=== PATIENT | female | born 1990 | race African-American/Black ===

== ENCOUNTER 2016-07-12 15:15 | Emergency (ER) | payer SELFPAY ==
[2016-07-12 15:35] VITALS: BMI 27.8
[2016-07-12] MEDS ORDERED: ONDANSETRON 4 MG/2 ML VIAL IVPB ONE (15:45)
[2016-07-12] MEDS ORDERED: ALBUTEROL SO4 0.083% IH SOL 2.5 MG/3 ML VIAL.NEB. NEB ONE ×2 (15:45→15:50)
[2016-07-12] MEDS ORDERED: SODIUM CHLORIDE 1,000 ML IV STA (15:45)
[2016-07-12] MEDS ORDERED: KETOROLAC TROMETHAMINE 30 MG/1 ML VIAL IVPUSH ONE (15:45)
--- NOTE | 2016-07-12 15:49 | PDOC ---
History of Present Illness - General History Source: Patient Exam Limitations: No Limitations - History of Present Illness Initial Comments: 07/12/16 16:02 Patient is a 26 year old female with a significant past medical history of asthma and migraines who presents to the ED with complaint of asthma exacerbation, nausea and vomiting. Patient reports asthma exacerbation for 1 week with associated cough and chest tightness localized to the left side radiating to the left arm. Patient states that the left chest tightness is exacerbated by cough. Patient reports no relief with using her albuterol pump. Patient states that this morning she developed nausea and vomiting. Patient reports 1 episode of vomiting, nonbloody or nonbilious. Patient reports chills and feeling warm. No recent travel or sick contact. SH: 1/2 pack a day PSH: None Allergy: Penicillin <Nina Velez - Last Filed: 07/12/16 16:01> - General History Source: Patient Exam Limitations: No Limitations <Олег Gaspar - Last Filed: 07/12/16 17:48> - General Chief Complaint: Asthma Stated Complaint: ASTHMA Time Seen by Provider: 07/12/16 15:17 Past History <Nina Velez - Last Filed: 07/12/16 16:01> - Past Medical History Asthma: Yes - Psycho/Social/Smoking Cessation Hx Anxiety: No Suicidal Ideation: No Smoking History: Current every day smoker Number of Cigarettes Smoked Daily: 20 Information on smoking cessation initiated: Yes 'Breaking Loose' booklet given: 04/10/14 Hx Alcohol Use: Yes Drug/Substance Use Hx: No <Олег Gaspar - Last Filed: 07/12/16 17:48> - Past Medical History Allergies/Adverse Reactions: Allergies Allergy/AdvReac Type Severity Reaction Status Date / Time Penicillins Allergy Unknown Verified 07/12/16 15:17 Home Medications: Ambulatory Orders Albuterol 0.083% Nebulizer Clarissa [Ventolin 0.083% Nebulizer Soln -] 1 neb NEB Q6H #1 box 04/10/14 Albuterol 0.083% Nebulizer Clarissa [Ventolin 0.083% Nebulizer Soln -] 1 neb NEB Q6H PRN #20 vial 07/12/16 Naproxen [Naprosyn -] 500 mg PO BID PRN #14 tablet 07/12/16 Ondansetron HCl [Zofran] 4 mg PO Q6H PRN #15 tablet 07/12/16 Ranitidine HCl [Zantac] 150 mg PO BID PRN #14 tablet 07/12/16 Review of Systems - Review of Systems Able to Perform ROS?: Yes Comments:: 07/12/16 16:02 GENERAL/CONSTITUTIONAL: (+) chills. No fever. No weakness. HEAD, EYES, EARS, NOSE AND THROAT: No change in vision. No ear pain or discharge. No sore throat. CARDIOVASCULAR: (+) chest tightness. No chest pain or shortness of breath. RESPIRATORY: (+)cough. No wheezing, or hemoptysis. GASTROINTESTINAL: (+)nausea, (+) vomiting. No diarrhea or constipation. GENITOURINARY: No dysuria, frequency, or change in urination. MUSCULOSKELETAL: No joint or muscle swelling or pain. No neck or back pain. SKIN: No rash NEUROLOGIC: No headache, vertigo, loss of consciousness, or change in strength/ sensation. ENDOCRINE: No increased thirst. No abnormal weight change. HEMATOLOGIC/LYMPHATIC: No anemia, easy bleeding, or history of blood clots. ALLERGIC/IMMUNOLOGIC: No hives or skin allergy. <Nina Velez - Last Filed: 07/12/16 16:01> *Physical Exam - Vital Signs Last Vital Signs Temp Pulse Resp BP Pulse Ox 98.4 F 122 H 18 139/88 98 07/12/16 15:16 07/12/16 15:16 07/12/16 15:16 07/12/16 15:16 07/12/16 15:16 - Physical Exam Comments: 07/12/16 16:04 GENERAL: Awake, alert, and fully oriented, in no acute distress HEAD: No signs of trauma EYES: PERRLA, EOMI, sclera anicteric, conjunctiva clear ENT: Auricles normal inspection, hearing grossly normal, nares patent, oropharynx clear without exudates. Moist mucosa NECK: Normal ROM, supple, no lymphadenopathy, JVD, or masses LUNGS: Breath sounds equal, clear to auscultation bilaterally. No wheezes, and no crackles HEART: Regular rate and rhythm, normal S1 and S2, no murmurs, rubs or gallops CHEST: (+)Left chest and chest wall tenderness ABDOMEN: Soft, nontender, normoactive bowel sounds. No guarding, no rebound. No masses EXTREMITIES: Normal range of motion, no edema. No clubbing or cyanosis. No cords, erythema, or tenderness NEUROLOGICAL: Cranial nerves II through XII grossly intact. Normal speech, normal gait SKIN: Warm, Dry, normal turgor, no rashes or lesions noted. <Nina Velez - Last Filed: 07/12/16 16:01> - Vital Signs Last Vital Signs Temp Pulse Resp BP Pulse Ox 98.4 F 122 H 18 139/88 98 07/12/16 15:16 07/12/16 15:16 07/12/16 15:16 07/12/16 15:16 07/12/16 15:16 <Олег Gaspar - Last Filed: 07/12/16 17:48> Heart Score/ECG Review #1 ECG reviewed & interpreted by me at: 16:45 07/12/16 17:25 NSR 74, no std/anil, normal axis, normal intervals, QTC 446 msec <Олег Gaspar - Last Filed: 07/12/16 17:48> ED Treatment Course - LABORATORY CBC & Chemistry Diagram: 07/12/16 16:05 07/12/16 16:05 <Олег Gaspar - Last Filed: 07/12/16 17:48> Medical Decision Making - Medical Decision Making 07/12/16 15:47 A portion of this note was documented by scribe services under my direction. I have reviewed the details of the note, within reason, and agree with the documentation with the following case summary and management plan written by me. Patient treated in the ED. Nursing notes are reviewed and incorporated into the medical decision-making. Vital signs reviewed. Peripheral IV access obtained by the nurse, laboratory studies are drawn and sent, reviewed and interpreted by myself. Vital Signs Temp Pulse Resp BP Pulse Ox 98.4 F 122 H 18 139/88 98 07/12/16 15:16 07/12/16 15:16 07/12/16 15:16 07/12/16 15:16 07/12/16 15:16 26-year-old female with past medical history migraines, asthma presents with asthma, left-sided chest pain, headache, nausea, vomiting, abdominal cramping. Patient reported that she started developing some left upper chest pain around the insertion site of her pectoralis major that was reproducible palpation and movement. Denies any traumas or physical exertion. Noted today that she developed general malaise, wheezing, headaches and body aches. Denies sick contacts. I suspect that the patient is likely having a viral syndrome. The chest pain is reproducible likely muscle skeletal. Patient has no family history of cardiac disease in the 20s or 30s. We will obtain some lab work treat symptoms and reassess. 07/12/16 17:44 CBC, BMP 07/12/16 16:05 07/12/16 16:05 CMP Sodium 136 mmol/L (136-145) 07/12/16 16:05 Potassium 4.0 mmol/L (3.5-5.1) 07/12/16 16:05 Chloride 104 mmol/L (98-107) 07/12/16 16:05 Carbon Dioxide 23 mmol/L (22-28) 07/12/16 16:05 Anion Gap 9 (8-16) 07/12/16 16:05 BUN 11 mg/dl (7-18) 07/12/16 16:05 Creatinine 0.7 mg/dl (0.6-1.3) 07/12/16 16:05 Creat Clearance w eGFR > 60 (>60) 07/12/16 16:05 Random Glucose 87 mg/dl (74-106) 07/12/16 16:05 Calcium 9.9 mg/dl (8.4-10.2) 07/12/16 16:05 Total Bilirubin 0.1 mg/dl (0.2-1.0) L 07/12/16 16:05 AST 19 U/L (10-42) 07/12/16 16:05 ALT 14 U/L (10-40) 07/12/16 16:05 Alkaline Phosphatase 47 U/L (32-92) 07/12/16 16:05 Creatine Kinase 71 IU/L (26-140) 07/12/16 16:05 Troponin I < 0.03 ng/ml (0.03-0.50) L 07/12/16 16:05 Total Protein 8.4 g/dl (6.4-8.3) H 07/12/16 16:05 Albumin 4.8 g/dl (3.5-5.0) 07/12/16 16:05 Urine Test Results Urine Color Yellow 07/12/16 15:55 Urine Appearance Clear 07/12/16 15:55 Urine pH 6.0 (4.5-8) 07/12/16 15:55 Ur Specific [place] 1.020 (1.005-1.025) 07/12/16 15:55 Urine Protein Negative (NEGATIVE) 07/12/16 15:55 Urine Glucose (UA) Negative (NEGATIVE) 07/12/16 15:55 Urine Ketones 2+ (NEGATIVE) H 07/12/16 15:55 Urine Blood 1+ (NEGATIVE) H 07/12/16 15:55 Urine Nitrite Negative (NEGATIVE) 07/12/16 15:55 Urine Bilirubin Negative (NEGATIVE) 07/12/16 15:55 Ur Leukocyte Esterase Trace (NEGATIVE) 07/12/16 15:55 Patient reports no significant better after the medications. Again, I suspect this is viral syndrome. Patient will call back for HIV results. Supportive care and follow-up with primary care physician. I discussed the physical exam findings, ancillary test results and final diagnoses with the patient. I answered all of the patient's questions. The patient was satisfied with the care received and felt comfortable with the discharge plan and treatment plan. The patient will call their primary care physician within 24 hours to arrange follow-up and will return to the Emergency Department with any new, persistant or worsening symptoms. <Олег Gaspar - Last Filed: 07/12/16 17:48> *DC/Admit/Observation/Transfer - Attestations Scribe Attestion: 07/12/16 16:04 Documentation prepared by YANNA Chapa, acting as medical device for Олег Gaspar MD. <Nina Velez - Last Filed: 07/12/16 16:01> - Discharge Dispostion Admit: No <Олег Gaspar - Last Filed: 07/12/16 17:48> Diagnosis at time of Disposition: Viral syndrome - Discharge Dispostion Disposition: HOME Condition at time of disposition: Good - Prescriptions Prescriptions: Naproxen [Naprosyn -] 500 mg PO BID PRN #14 tablet PRN Reason: Pain/Fever Albuterol 0.083% Nebulizer Clarissa [Ventolin 0.083% Nebulizer Soln -] 1 neb NEB Q6H PRN #20 vial PRN Reason: Wheezing Ranitidine HCl [Zantac] 150 mg PO BID PRN #14 tablet PRN Reason: GERD Ondansetron HCl [Zofran] 4 mg PO Q6H PRN #15 tablet PRN Reason: Nausea - Patient Instructions Printed Discharge Instructions: Tips to Help You Stop Smoking, DI for Viral Syndrome Additional Instructions: You likely have a viral syndrome. Take the medications as prescribed. Drink plenty of fluids and rest. Follow up with your doctor. Call back [phone] for the additional results.
[2016-07-12] MEDS ORDERED: KETOROLAC TROMETHAMINE 30 MG/1 ML VIAL ONE (15:50)
[2016-07-12] MEDS ORDERED: ONDANSETRON 4 MG/2 ML VIAL ONE (15:51)
[2016-07-12 16:23] LABS: BASOPHIL 4.7 % (0-2.0); EOSINOPHIL 0.5 % (0-4.5); MCH 30.3 pg (25.7-33.7); MCHC 33.9 g/dl (32.0-36.0); MEAN CELL VOLUME 89.5 fl (80-96); MEAN PLT VOLUME 10.3 fl (7.5-11.1); NEUTROPHILS 62.9 % (42.8-82.8); PLATELET COUNT 153 K/MM3 (134-434); RDW 12.8 % (11.6-15.6); WHITE BLOOD COUNT 6.4 K/mm3 (4.0-10.8)
[2016-07-12 16:44] LABS: URINE APPEARANCE Clear; URINE BILIRUBIN Negative (NEGATIVE); URINE GLUCOSE (UA) Negative (NEGATIVE); URINE KETONE 2+ (NEGATIVE); URINE LEUK ESTERASE Trace (NEGATIVE); URINE NITRITE Negative (NEGATIVE); URINE PROTEIN Negative (NEGATIVE); URINE UROBILINOGEN 0.2 E.U/dl (0.2-1.0)
[2016-07-12 16:46] LABS: URINE COLOR YELLOW
[2016-07-12 17:13] LABS: ALBUMIN 4.8 g/dl (3.5-5.0); ALK PHOS 47 U/L (32-92); ANION GAP 9 (8-16); BILIRUBIN,TOTAL 0.1 mg/dl (0.2-1.0); CALCIUM 9.9 mg/dl (8.4-10.2); CO2 23 mmol/L (22-28); CPK(DFH) 71 IU/L (26-140); CREATININE 0.7 mg/dl (0.6-1.3); GLUCOSE,RANDOM 87 mg/dl (74-106); SGOT/AST 19 U/L (10-42); SGPT/ALT 14 U/L (10-40); TOT PROT 8.4 g/dl (6.4-8.3)
[2016-07-12 17:20] VITALS: BP 98/53; PULSE 76; TEMP 98.8
[2016-07-12 17:23] LABS: TROPONIN I (DFP) < 0.03 ng/ml (0.03-0.50)
[2016-07-12 18:44] LABS: HIV 1 & 2 AB NEGATIVE; HIV 1 AGp24 NEGATIVE
[2016-07-12 20:27] LABS: URINE BLOOD 1+ (NEGATIVE)
--- NOTE | 2016-07-13 09:04 | EKG ---
Test Reason : Blood Pressure : / mmHG Vent. Rate : 074 BPM Atrial Rate : 074 BPM P-R Int : 128 ms QRS Dur : 086 ms QT Int : 402 ms P-R-T Axes : 072 075 049 degrees QTc Int : 446 ms SINUS RHYTHM WITH MARKED SINUS ARRHYTHMIA NONSPECIFIC T WAVE ABNORMALITY NO PREVIOUS ECGS AVAILABLE Confirmed by MD CARMELINA, YAMIL ([id number]) on 07/13/2016 9:03:58 AM Referred By: LEANDRA Confirmed By:YAMIL COSME MD
== END 2016-07-12 17:58 | disposition home or self-care (01) ==
LOC: FER 15:15
PROC: 3E0333Z Introduction of Anti-inflammatory into Peripheral Vein, Percutaneous Approach (ICD-10-PCS; principal; 2016-07-12)
PROC: 3E033GC Introduction of Other Therapeutic Substance into Peripheral Vein, Percutaneous Approach (ICD-10-PCS; 2016-07-12)
PROC: 3E0337Z Introduction of Electrolytic and Water Balance Substance into Peripheral Vein, Percutaneous Approach (ICD-10-PCS; 2016-07-12)
PROC: 3E0F7GC Introduction of Other Therapeutic Substance into Respiratory Tract, Via Natural or Artificial Opening (ICD-10-PCS; 2016-07-12)
DX: B34.9 Viral infection, unspecified (principal); J45.909 Unspecified asthma, uncomplicated; F17.210 Nicotine dependence, cigarettes, uncomplicated; Z88.0 Allergy status to penicillin
CPT/HCPCS: 36415; 80053; 81003; 82550; 84484; 84703; 85025; 87389; 93005; 99284-25

== ENCOUNTER 2016-07-15 07:02 | Emergency (ER) | payer OTHER ==
[2016-07-15 07:06] VITALS: BP 121/84; PULSE 108; TEMP 99; BMI 27.8
--- NOTE | 2016-07-15 07:14 | PDOC ---
History of Present Illness - General Chief Complaint: Sore Throat Stated Complaint: SORE THROAT Time Seen by Provider: 07/15/16 07:03 History Source: Patient Exam Limitations: No Limitations - History of Present Illness Initial Comments: 07/15/16 07:09 26 y/o female seen 2 days ago in the ER for congestion and told to take Tylenol returns with increase congestion, coughing and sore throat. No fever or chills. No traveling. No SOB or chest pain. OTC medications not working. Hx of asthma. Denies leg pain as well. Severity: mild Associated Symptoms: reports: cough. denies: fever/chills, nausea/vomiting, shortness of breath Past History - Past Medical History Allergies/Adverse Reactions: Allergies Allergy/AdvReac Type Severity Reaction Status Date / Time Penicillins Allergy Unknown Verified 07/15/16 07:03 Home Medications: Ambulatory Orders Azithromycin [Zithromax -] 250 mg PO UTDICT #6 tab 07/15/16 Prednisone [Deltasone -] 20 mg PO BID #10 tablet 07/15/16 Asthma: Yes - Psycho/Social/Smoking Cessation Hx Anxiety: No Suicidal Ideation: No Smoking History: Current every day smoker Number of Cigarettes Smoked Daily: 20 Information on smoking cessation initiated: Yes 'Breaking Loose' booklet given: 07/15/16 Hx Alcohol Use: No Drug/Substance Use Hx: No Review of Systems - Review of Systems Able to Perform ROS?: Yes Is the patient limited Dutch proficient: No Constitutional: No: Chills, Fever Respiratory: Yes: Cough. No: Shortness of Breath Cardiac (ROS): No: Chest Pain, Palpitations ABD/GI: No: Nausea, Vomiting All Other Systems: Reviewed and Negative *Physical Exam - Vital Signs Last Vital Signs Temp Pulse Resp BP Pulse Ox 99 F 108 H 18 121/84 100 07/15/16 07:02 07/15/16 07:02 07/15/16 07:02 07/15/16 07:02 07/15/16 07:02 - Physical Exam General Appearance: Yes: Nourished, Appropriately Dressed. No: Apparent Distress HEENT: positive: EOMI, ERICKA, Normal ENT Inspection, Pharynx Normal Neck: positive: Trachea midline, Normal Thyroid, Supple Respiratory/Chest: positive: Lungs Clear, Normal Breath Sounds. negative: Chest Tender, Respiratory Distress Cardiovascular: positive: Regular Rhythm, Regular Rate, S1, S2. negative: Edema , JVD Vascular Pulses: Femoral (R): 4+, Femoral (L): 4+, Carotid (R): 4+, Carotid (L) : 4+, Dorsalis-Pedis (R): 4+, Doralis-Pedis (L): 4+ Gastrointestinal/Abdominal: positive: Normal Bowel Sounds, Flat, Soft. negative : Organomegaly Lymphatic: negative: Adenopathy, Tenderness, Other Musculoskeletal: positive: Normal Inspection. negative: CVA Tenderness Extremity: positive: Normal Capillary Refill, Normal Inspection, Normal Range of Motion. negative: Calf Tenderness (no calf tenderness b/l) Integumentary: positive: Normal Color, Dry, Warm Neurologic: positive: typewriters functional tester II-XII NML intact, Fully Oriented, Alert, Normal Mood/ Affect, Normal Response, Motor Strength 07/09 ED Treatment Course - ADDITIONAL ORDERS Additional order review: 07/15/16 07:[address] on Z-pack and Prednisone Pt is in agreement with plan if worsen return to ER 07/15/16 07:25 I do not seen any signs of a PE, HR now RRR w/o murmurs, no tachycardia. Denies SOB, states throat irritated from coughing. No leg pain as well, neg calf tenderness b/l on exam. 07/15/16 07:32 Pt is spitting up phlegm but no blood noted or hemoptysis noted in ER *DC/Admit/Observation/Transfer Diagnosis at time of Disposition: Bronchitis - Discharge Dispostion Condition at time of disposition: Stable Admit: No - Patient Instructions Printed Discharge Instructions: DI for Acute Bronchitis Additional Instructions: Continue asthma medications Prednisone 20 mg 2x/day for 5 days Z-pack as directed If worsen return to ER
== END 2016-07-15 07:45 | disposition home or self-care (01) ==
LOC: FER 07:02
DX: J20.9 Acute bronchitis, unspecified (principal); F17.210 Nicotine dependence, cigarettes, uncomplicated
CPT/HCPCS: 99281-25

== ENCOUNTER 2017-03-13 22:49 | Emergency (ER) | payer OTHER ==
[2017-03-13] MEDS ORDERED: SODIUM CHLORIDE 1,000 ML IV ONE (23:00)
[2017-03-13] MEDS ORDERED: ONDANSETRON 4 MG/2 ML VIAL IVPB ONE (23:00)
--- NOTE | 2017-03-13 23:00 | PDOC ---
History of Present Illness - General Chief Complaint: Nausea/Vomiting Stated Complaint: VOMITING X 4 HOURS AFTER EATING CROATIAN FOOD Time Seen by Provider: 03/13/17 22:59 History Source: Patient Exam Limitations: No Limitations - History of Present Illness Initial Comments: 03/13/17 23:15 This is a 26-year-old female who comes in complaining of acute onset nausea vomiting and abdominal spasm/pain. Patient said symptoms began about 2 hours after eating Amharic food. However patient also said that a number of her coworkers have been sick with a similar type of illness. And there is a large outbreak of normal virus in the area. Patient denies any diarrhea. Patient said she has not been able to keep anything in all day. Patient denies any fevers or chills. Patient denies any chest pain, cough, congestion. PAST MEDICAL HISTORY: no significant history PAST SURGICAL HISTORY: no significant history FAMILY HISTORY: no pertinant history SOCIAL HISTORY: Pt lives with family and is employed. MEDICATIONS: reviewed ALLERGIES: As per nursing notes Review of Systems General: No fevers or chills, no weakness, no weight loss HEENT: No change in vision. No sore throat,. No ear pain CardioVascular: No chest pain or shortness of breath Respiratory:No cough, or wheezing. Gastrointestinal: + nausea, + vomitting, no diarrhea or constipation, No rectal bleeding Genitourinary: No dysuria, hematuria, or frequency Musculoskeletal: No joint or muscle pain or swelling Neurologic: No headache, vertigo, dizziness or loss of consciousness Psychiatric: nor depression Skin: No rashes or easy bruising Endocrine: no increased thirst or abnormal weight change Allergic: no skin or latex allergy All other systems reviewed and normal Exam: General: Well-nourished well-developed individual, no acute distress HEENT: Throat: Normal, tonsils normal, no erythema or exudate, mucus membranes dry. Neck: Supple, no meningeal signs, no lymphadenopathy Eyes::Pupils equal reactive and round, extraocular motion intact Chest: Nontender to palpation Cardiac: S1-S2 normal, regular rate and rhythm, no murmurs rubs or gallops Respiratory: Lungs clear to auscultation bilateral Abdomen: Soft, nondistended, normal bowel sounds, mildly tender to palpation epigastric Extremities: Warm, dry, no cyanosis, clubbing, or edema Skin: No rashes Neuro: Alert and oriented x3, CN II - XII intact, nonfocal exam with normal strength, normal sensation, normal reflexes, normal gait, Psych: Normal mood and affect Medical decision making: This is a 26-year-old female with nausea vomiting most likely secondary to the normal virus. Patient had some mild tenderness in her epigastric otherwise normal exam Patient appeared clinically dry. Labs were not sent as patient is only been vomiting a few hours and she is hemodynamically stable and afebrile. We'll reassess post 1 L of fluid, Zofran, hyoscyamine and Pepcid. 03/14/17 00:15 Reassessment patient is feeling better no further vomiting. Patient is on second liter of fluid Past History - Past Medical History Allergies/Adverse Reactions: Allergies Allergy/AdvReac Type Severity Reaction Status Date / Time Penicillins Allergy Unknown Verified 03/13/17 23:07 Home Medications: Ambulatory Orders Ondansetron [Zofran *Odt*] 8 mg SL TID PRN #12 od.tablet 03/13/17 Asthma: Yes - Suicide/Smoking/Psychosocial Hx Smoking History: Current every day smoker Number of Cigarettes Smoked Daily: 20 'Breaking Loose' booklet given: 07/15/16 Hx Alcohol Use: No Drug/Substance Use Hx: No *DC/Admit/Observation/Transfer Diagnosis at time of Disposition: Nausea & vomiting Qualifiers: Vomiting type: unspecified Vomiting Intractability: non-intractable Qualified Code(s): R11.2 - Nausea with vomiting, unspecified - Discharge Dispostion Disposition: HOME Condition at time of disposition: Stable - Prescriptions Prescriptions: Ondansetron [Zofran *Odt*] 8 mg SL TID PRN #12 od.tablet PRN Reason: Nausea - Referrals - Patient Instructions Printed Discharge Instructions: DI for Vomiting -- Adult Additional Instructions: Clear liquids only for the next 6 hours.. After that if you have had no further vomiting you may have bananas, rice, applesauce, or toast. If no further vomiting for another 8 hours you may have regular food. If you vomit again then nothing to eat or drink for 2 hours. then start back with the clear liquids. Return to the emergency department immediately with ANY new, persistent or worsening symptoms. You MUST call and follow up with your doctor tomorrow if not better. Please make sure your doctor reviews the results of your emergency evaluation. For any further nausea you can take Zofran 1 tablet as often as 3 times a day. - Post Discharge Activity
[2017-03-13] MEDS ORDERED: HYOSCYAMINE SULFATE 0.125 MG *ODT PO ONE (23:11)
[2017-03-13 23:14] VITALS: BP 106/69; PULSE 97; TEMP 98.1; BMI 29.2
[2017-03-13] MEDS ORDERED: HYOSCYAMINE SULFATE 0.125 MG *ODT ONE (23:15)
[2017-03-13] MEDS ORDERED: FAMOTIDINE 20 MG/50 ML IVPB 20 MG/50 ML MG IVPB ONE (23:29)
[2017-03-14] MEDS ORDERED: FAMOTIDINE IV 20 MG/12 ML VIAL IVPUSH ONE (23:13)
== END 2017-03-14 00:30 | disposition home or self-care (01) ==
LOC: FER 22:49
PROC: 3E033GC Introduction of Other Therapeutic Substance into Peripheral Vein, Percutaneous Approach (ICD-10-PCS; principal; 2017-03-13)
PROC: 3E033GC Introduction of Other Therapeutic Substance into Peripheral Vein, Percutaneous Approach (ICD-10-PCS; 2017-03-13)
PROC: 3E0337Z Introduction of Electrolytic and Water Balance Substance into Peripheral Vein, Percutaneous Approach (ICD-10-PCS; 2017-03-13)
DX: R11.2 Nausea with vomiting, unspecified (principal)
CPT/HCPCS: 99281-25

== ENCOUNTER 2017-10-13 20:42 | Emergency (ER) | payer OTHER ==
--- NOTE | 2017-10-13 20:47 | PDOC ---
History of Present Illness - General History Source: Patient Exam Limitations: No Limitations - History of Present Illness Initial Comments: 10/13/17 21:46 The patient is a 27-year-old female with past medical history of asthma (last asthma attack a year ago, no intubation history, on Albuterol, Migraines (takes Advil as needed for pain) and recent dx of a sinus infection (on Flonase) presents to the emergency department with blood per rectum. 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 The patient states at baseline she noticed blood when she wipes secondary to hemorrhoids, never in the stool. The patient reports associated symptoms of epigastric pain that occasionally radiates to the back, with nausea, denies vomiting. The patient reports shes been having episodes of diarrhea, brownish/reddish in color, denies melena. The patient reports shes currently menstruating, started on Tuesday, regular cycle. Denies sick contact. Denies recent travel outside the country. No past bleeding. The patient reports last week she was diagnosed with a sinus infection, that was accompanied by congestion, pressure and chest pain. The patient reports she was given Flonase, with pressure relief but states she still feels congested. Allergies: penicillins SH: 7-8 cigarettes daily, social use of alcohol. No recreational drug use reported. <Yudith Levi - Last Filed: 10/13/17 22:00> <Andie Vang - Last Filed: 10/14/17 02:39> - General Chief Complaint: Bleeding from Anus Stated Complaint: MALAISE/BLOOD IN STOOL Time Seen by Provider: 10/13/17 20:45 Past History <Yudith Levi - Last Filed: 10/13/17 22:00> - Past Medical History Asthma: Yes COPD: No - Immunization History Immunization Up to Date: (UTO) - Suicide/Smoking/Psychosocial Hx Smoking History: Current every day smoker Have you smoked in the past 12 months: Yes Number of Cigarettes Smoked Daily: 20 'Breaking Loose' booklet given: 07/15/16 Hx Alcohol Use: No Drug/Substance Use Hx: No Substance Use Type: None <Andie Vang - Last Filed: 10/14/17 02:39> - Past Medical History Allergies/Adverse Reactions: Allergies Allergy/AdvReac Type Severity Reaction Status Date / Time Penicillins Allergy Unknown Verified 10/07/17 11:42 Home Medications: Ambulatory Orders Pantoprazole Sodium [Protonix -] 40 mg PO DAILY #20 tablet.ec 10/13/17 Review of Systems - Review of Systems Comments:: 10/13/17 21:47 GENERAL/CONSTITUTIONAL: No fever or chills. No weakness. HEAD, EYES, EARS, NOSE AND THROAT: (+) Congestion. No change in vision. No ear pain or discharge. No sore throat. CARDIOVASCULAR: No chest pain or shortness of breath. RESPIRATORY: No cough, wheezing, or hemoptysis. GASTROINTESTINAL: (+) Epigastric tenderness. (+) nausea. (+) diarrhea. No vomiting or constipation GENITOURINARY: (+) Blood in the stool. No dysuria, frequency, or change in urination. MUSCULOSKELETAL: No joint or muscle swelling or pain. No neck or back pain. SKIN: No rash NEUROLOGIC: No headache, vertigo, loss of consciousness, or change in strength/ sensation. ENDOCRINE: No increased thirst. No abnormal weight change. HEMATOLOGIC/LYMPHATIC: history of anemia. No easy bleeding, or history of blood clots. ALLERGIC/IMMUNOLOGIC: No hives or skin allergy. <Yudith Levi - Last Filed: 10/13/17 22:00> *Physical Exam - Vital Signs Last Vital Signs Temp Pulse Resp BP Pulse Ox 9855 F H 78 16 112/67 98 10/13/17 20:44 10/13/17 20:44 10/13/17 20:44 10/13/17 20:44 10/13/17 20:44 - Physical Exam Comments: 10/13/17 21:49 GENERAL: Awake, alert, and fully oriented, in no acute distress HEAD: No signs of trauma EYES: PERRLA, EOMI, sclera anicteric, conjunctiva clear ENT: Auricles normal inspection, hearing grossly normal, nares patent, oropharynx clear without exudates. Moist mucosa NECK: Normal ROM, supple, no lymphadenopathy, JVD, or masses LUNGS: Breath sounds equal, clear to auscultation bilaterally. No wheezes, and no crackles HEART: Regular rate and rhythm, normal S1 and S2, no murmurs, rubs or gallops ABDOMEN: (+) Mild epigastric tenderness without rebound or masses or involuntary guarding. Rectal exam: External and internal hemorrhoid. No stool or blood in the ampulla EXTREMITIES: Normal range of motion, no edema. No clubbing or cyanosis. No cords, erythema, or tenderness NEUROLOGICAL: Cranial nerves II through XII grossly intact. Normal speech, normal gait SKIN: Warm, Dry, normal turgor, no rashes or lesions noted <Yudith Levi - Last Filed: 10/13/17 22:00> ED Treatment Course - LABORATORY CBC & Chemistry Diagram: 10/13/17 21:45 10/13/17 21:45 - ADDITIONAL ORDERS Additional order review: Laboratory Results 10/13/17 20:55 Urine Color Yellow Urine Appearance Clear Urine pH 5.5 Ur Specific [place] >= 1.030 H Urine Protein 1+ H Urine Glucose (UA) Negative Urine Ketones 2+ H Urine Blood 2+ H Urine Nitrite Negative Urine Bilirubin 1+ H Urine Urobilinogen 0.2 Ur Leukocyte Esterase Negative Urine RBC 4-8 Urine WBC 0-2 Urine Bacteria Few Urine HCG, Qual Negative <Yudith Levi - Last Filed: 10/13/17 22:00> - LABORATORY CBC & Chemistry Diagram: 10/13/17 21:45 10/13/17 21:45 <Andie Vang - Last Filed: 10/14/17 02:39> Medical Decision Making - Medical Decision Making Documentation has been prepared under my direction and personally reviewed by me in its entirety. I attest that this documented accurately reflects all work, treatment, procedures and medical decision making performed by me. Physical exam reveals mild epigastric tenderness and evidence of both internal and external hemorrhoids on rectal exam. Since there was no stool in the ampulla, stool heme exam could not be performed at this time. CBC sent to evaluate if the patient is currently anemic(states that she was diagnosed as being anemic in the past). CBC/chemistry profile are normal without evidence of anemia or other acute process. Protonix 40 mg by mouth given. Patient currently does not have a PCP. referral information given to the patient's. Patient should follow-up with with it one week. She should drink plenty of water and include high-fiber foods in her diet. Protonix 40 mg daily prescription sent to the pharmacy. She should return to the emergency room if she has worsening fatigue/lightheadedness or experiences persistent rectal bleeding. <Andie Vang - Last Filed: 10/14/17 02:39> *DC/Admit/Observation/Transfer - Attestations Scribe Attestion: 10/13/17 21:50 Documentation prepared by Yudith Levi, acting as nuclear medicine medical director for Andie Vang MD. <Yudith Levi - Last Filed: 10/13/17 22:00> <Andie Vang - Last Filed: 10/14/17 02:39> Diagnosis at time of Disposition: Bleeding internal hemorrhoids - Discharge Dispostion Disposition: HOME Condition at time of disposition: Stable - Prescriptions Prescriptions: Pantoprazole Sodium [Protonix -] 40 mg PO DAILY #20 tablet.ec - Referrals Referrals: Grayson Jaime MD [Staff Physician] - 1 week - Patient Instructions Printed Discharge Instructions: DI for Rectal Bleeding Additional Instructions: Include high-fiber foods in your diet Drink plenty of water Protonix 40 mg daily Return to ER if you have persistent pain or severe rectal bleeding Follow up with within 1 week
[2017-10-13 20:50] VITALS: BP 112/67; PULSE 78; BMI 26.3
[2017-10-13 21:07] LABS: PH,URINE 5.5 (4.5-8); URINE APPEARANCE Clear; URINE BILIRUBIN 1+ (NEGATIVE); URINE COLOR Yellow; URINE GLUCOSE (UA) Negative (NEGATIVE); URINE KETONE 2+ (NEGATIVE); URINE LEUK ESTERASE Negative (NEGATIVE); URINE NITRITE Negative (NEGATIVE); URINE PROTEIN 1+ (NEGATIVE); URINE UROBILINOGEN 0.2 (0.2-1.0)
[2017-10-13 21:13] LABS: HCG,QUALITATIVE URINE Negative
[2017-10-13 21:17] LABS: URINE BACTERIA FEW /hpf (NEGATIVE); URINE WBC 0-2 (0-5)
[2017-10-13 21:55] LABS: BASO % 1.5 % (0-2.0); EOS % 3.2 % (0-4.5); HEMOGLOBIN 12.7 GM/dl (10.7-15.3); LYMPH % 32.3 % (8-40); MCH 32.4 pg (25.7-33.7); MCHC 35.3 g/dl (32.0-36.0); MEAN CELL VOLUME 91.7 fl (80-96); MEAN PLT VOLUME 9.6 fl (7.5-11.1); MONO % 10.9 % (3.8-10.2); NEUT % 52.1 % (42.8-82.8); PLATELET COUNT 189 K/MM3 (134-434); RBC 3.93 M/mm3 (3.60-5.2); RDW 12.4 % (11.6-15.6); WHITE BLOOD COUNT 7.1 K/mm3 (4.0-10.8)
[2017-10-13 22:07] VITALS: TEMP 98.5
[2017-10-13 22:12] LABS: ALBUMIN 4.2 g/dl (3.5-5.0); ALK PHOS 37 U/L (32-92); ANION GAP 8 (8-16); BILIRUBIN,TOTAL 0.7 mg/dl (0.2-1.0); BLOOD UREA NITROGEN 15 mg/dl (7-18); CALCIUM 9.4 mg/dl (8.4-10.2); CHLORIDE 107 mmol/L (98-107); CO2 23 mmol/L (22-28); CREATININE 0.7 mg/dl (0.6-1.3); GLUCOSE,RANDOM 90 mg/dl (74-106); POTASSIUM 3.5 mmol/L (3.5-5.1); SGOT/AST 20 U/L (10-42); SGPT/ALT 15 U/L (10-40); SODIUM 138 mmol/L (136-145); TOT PROT 7.2 g/dl (6.4-8.3)
[2017-10-13] MEDS ORDERED: PANTOPRAZOLE 40 MG TABLET (FP) PO ONE (22:24)
[2017-10-13] MEDS ORDERED: PANTOPRAZOLE 40 MG TABLET (FP) ONE (22:26)
== END 2017-10-13 22:33 | disposition home or self-care (01) ==
LOC: FER 20:42
DX: K64.8 Other hemorrhoids (principal)
CPT/HCPCS: 36415; 80053; 81003; 81015; 84703; 85025; 99281-25

== ENCOUNTER 2018-01-31 18:42 | Emergency (ER) | payer OTHER ==
[2018-01-31 18:58] VITALS: BP 128/74; PULSE 68; TEMP 97.5; BMI 26.6
--- NOTE | 2018-01-31 18:58 | PDOC ---
Rapid Medical Evaluation Time Seen by Provider: 01/31/18 18:55 Medical Evaluation: Allergies Allergy/AdvReac Type Severity Reaction Status Date / Time Penicillins Allergy Unknown Verified 10/07/17 11:42 01/31/18 18:56 Pt c/o: rt sided cp intermittently worse with deep breathing and movment, no smoking, no sob, no rash, no exertional activity pt on brief exam: reproducible rt sided CP, no rash Pt ordered for: none Pt to proceed to the ED Discharge Disposition - Diagnosis Right-sided chest pain - Referrals - Patient Instructions - Post Discharge Activity
--- NOTE | 2018-01-31 19:34 | PDOC ---
History of Present Illness - General Chief Complaint: Chest Pain Stated Complaint: CHEST PAIN Time Seen by Provider: 01/31/18 18:55 History Source: Patient Exam Limitations: No Limitations - History of Present Illness Initial Comments: 01/31/18 19:33 Here with complaints of pleuritic chest pain that's progressively worsened since yesterday. has been suffering with URI, with severe cough and bringing up some thick yellowish phlegm. Patient denies fever, but has some nasal congestion and postnasal drainage. Is an intermittent smoker/vaping, and off for feverish relief Timing/Duration: reports: getting worse Severity: reports: mild, moderate Associated Symptoms: reports: chest pain/soreness, cough, fever/chills, nasal congestion, nasal drainage Past History - Travel Traveled outside of the country in the last 30 days: No Close contact w/someone who was outside of country & ill: No - Past Medical History Allergies/Adverse Reactions: Allergies Allergy/AdvReac Type Severity Reaction Status Date / Time Penicillins Allergy Unknown Verified 10/07/17 11:42 Home Medications: Ambulatory Orders Azithromycin [Zithromax -] 250 mg PO UTDICT #6 tab 01/31/18 Asthma: Yes COPD: No - Immunization History Immunization Up to Date: Yes (UTO) - Suicide/Smoking/Psychosocial Hx Smoking History: Current some day smoker Have you smoked in the past 12 months: Yes Number of Cigarettes Smoked Daily: 20 Information on smoking cessation initiated: No 'Breaking Loose' booklet given: 07/15/16 Hx Alcohol Use: No Drug/Substance Use Hx: No Substance Use Type: None Review of Systems - Review of Systems Able to Perform ROS?: Yes Is the patient limited Yemeni proficient: Yes Constitutional: Yes: Symptoms Reported, See HPI, Chills, Fever, Malaise. No: Loss of Appetite HEENTM: Yes: Symptoms Reported, See HPI, Nose Congestion, Throat Pain, Difficulty Swallowing Respiratory: Yes: Symptoms reported, See HPI, Cough ABD/GI: Yes: See HPI, Nausea. No: Symptoms Reported Musculoskeletal: Yes: Symptoms Reported, See HPI Integumentary: Yes: Symptoms Reported Neurological: No: Symptoms reported All Other Systems: Reviewed and Negative *Physical Exam - Vital Signs Last Vital Signs Temp Pulse Resp BP Pulse Ox 97.5 F L 68 16 128/74 100 01/31/18 18:56 01/31/18 18:56 01/31/18 18:56 01/31/18 18:56 01/31/18 18:56 - Physical Exam General Appearance: Yes: Nourished, Appropriately Dressed, Apparent Distress, Mild Distress HEENT: positive: ERICKA, TMs Normal, Pharynx Normal (with thick whitish posterior sinus drainage, no exudate, no redness or swelling to tonsil) Neck: positive: Tender, Supple, Lymphadenopathy (R), Lymphadenopathy (L) Respiratory/Chest: positive: Lungs Clear, Normal Breath Sounds. negative: Rhonchi Gastrointestinal/Abdominal: positive: Soft. 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 Understands cause for initiating antibiotic therapy and will follow-up with PMD *DC/Admit/Observation/Transfer Diagnosis at time of Disposition: URI, acute - Discharge Dispostion Disposition: HOME Condition at time of disposition: Stable Decision to Admit order: No - Referrals - Patient Instructions Printed Discharge Instructions: DI for Acute Bronchitis Additional Instructions: Rest, drink lots of fluids: Teas, water, soups, Pedialyte Saltwater gargles Steamy showers/seem to face break up mucus Avoid contact with others until fevers and cough resolved Lots of handwashing and good hygiene Continue [id number]-[id number] medications for symptomatic relief Tylenol or Motrin for fever and pain Start azithromycin if fevers go greater than 101.5, if phlegm production worse, if body aches and chills worsen. Stop Vaping /smoking Followup with private physician in one to 2 days as needed Return to emergency department for worsened symptoms, fevers, dehydration - Post Discharge Activity Forms/Work/School Notes: Back to Work
== END 2018-01-31 19:56 | disposition home or self-care (01) ==
LOC: JERFT 18:42
DX: J20.9 Acute bronchitis, unspecified (principal)
CPT/HCPCS: 99281-25

== ENCOUNTER 2018-03-04 19:43 | Emergency (ER) | payer OTHER ==
[2018-03-04 19:56] VITALS: BP 122/60; PULSE 78; TEMP 97.9; BMI 29.0
--- NOTE | 2018-03-04 21:42 | PDOC ---
History of Present Illness - General Chief Complaint: Eye Problem Stated Complaint: EYE PAIN Time Seen by Provider: 03/04/18 21:29 History Source: Patient - History of Present Illness Initial Comments: 03/04/18 21:37 27 year old female with right eye redness and slight pain. denies vision changes or vision loss, double vision,. No past medical history Past History - Past Medical History Allergies/Adverse Reactions: Allergies Allergy/AdvReac Type Severity Reaction Status Date / Time Penicillins Allergy Unknown Verified 03/04/18 19:55 Home Medications: Ambulatory Orders Eye Lubricant Combination No.1 [Freshkote] 1 ml OP QID #1 drops 03/04/18 Asthma: Yes COPD: No Other medical history: migraines, sinus - Immunization History Immunization Up to Date: Yes (UTO) - Suicide/Smoking/Psychosocial Hx Smoking History: Never smoked Have you smoked in the past 12 months: Yes Number of Cigarettes Smoked Daily: 20 'Breaking Loose' booklet given: 07/15/16 Hx Alcohol Use: No Drug/Substance Use Hx: No Substance Use Type: None Review of Systems - Review of Systems Able to Perform ROS?: Yes Is the patient limited Malay proficient: No Constitutional: No: Symptoms Reported, See HPI, Chills, Diaphoresis, Fever, Loss of Appetite, Malaise, Night Sweats, Weakness, Weight Stable, Unintentional Wgt. Loss, Unexplained wgt Loss, Other HEENTM: Yes: Other *Physical Exam - Vital Signs Last Vital Signs Temp Pulse Resp BP Pulse Ox 97.9 F 78 18 122/60 100 03/04/18 19:53 03/04/18 19:53 03/04/18 19:53 03/04/18 19:53 03/04/18 19:53 - Physical Exam General Appearance: Yes: Appropriately Dressed HEENT: positive: Other (+ right subconjunctival hemorrhage, PERRLA. snellen 20/ 40) Respiratory/Chest: positive: Lungs Clear, Normal Breath Sounds Moderate Sedation - Procedure Monitoring Vital Signs: Procedure Monitoring Vital Signs Temperature 97.9 F 03/04/18 19:53 Pulse Rate 78 03/04/18 19:53 Respiratory Rate 18 03/04/18 19:53 Blood Pressure 122/60 03/04/18 19:53 O2 Sat by Pulse Oximetry (%) 100 03/04/18 19:53 *DC/Admit/Observation/Transfer Diagnosis at time of Disposition: Subconjunctival bleed Qualifiers: Laterality: right Qualified Code(s): H11.31 - Conjunctival hemorrhage, right eye - Discharge Dispostion Disposition: HOME - Prescriptions Prescriptions: Eye Lubricant Combination No.1 [Freshkote] 1 ml OP QID #1 drops - Referrals Referrals: Roberta Guallpa MD [Primary Care Provider] - Andrea Lema MD [Staff Physician] - Call tomorrow - Patient Instructions Printed Discharge Instructions: DI for Subconjunctival Hemorrhage Additional Instructions: apple eye lubricant every 6 hours as needed . do not rub eye Additional Instructions: * Please call your personal physician to report your Emergency Department visit and to report your progress, if any. * If there is no improvement in symptoms in 2 days call your physician. * Return to the Emergency Department for any worsening symptoms. - Post Discharge Activity Forms/Work/School Notes: Back to Work
== END 2018-03-04 22:09 | disposition home or self-care (01) ==
LOC: JERFT 19:43
DX: H11.31 Conjunctival hemorrhage, right eye (principal)
CPT/HCPCS: 99281-25

== ENCOUNTER 2018-03-09 21:44 | Emergency (ER) | payer OTHER ==
[2018-03-09 21:48] VITALS: TEMP 97.4; BMI 29.0
--- NOTE | 2018-03-09 23:46 | PDOC ---
Attending Attestation - HPI HPI: 03/09/18 23:47 The patient is a 27 year old female, with no significant past medical history, who presents to the emergency department with, pleuritic chest pain with associated shortness of breath. Patient notes her pain to be worsened when touching the area. She endorses that she lifts heavy objects at work. She denies any recently palpitations or diaphoresis. She denies recent fevers, chills, headache or dizziness. She denies recent nausea, vomit, diarrhea or constipation. She denies recent dysuria, frequency, urgency or hematuria. Allergies: Penicillins <Norma Borjas - Last Filed: 03/09/18 23:47> - Resident Resident Name: Robert Friend - ED Attending Attestation I have performed the following: I have examined & evaluated the patient, The case was reviewed & discussed with the resident, I agree w/resident's findings & plan, Exceptions are as noted - Physicial Exam PE: 03/10/18 01:27 AOx3, NAD Neck supple Mild ttp over chest wall, no rash LCTAB, normal wob - Medical Decision Making 03/10/18 01:27 Likely msk injury, pna, acs, less likely, PERC neg analgesia f/u cxr, ekg If neg for findings of acute pathology, dc <Kwan Rodriguez - Last Filed: 03/10/18 01:29> Attestations - Attestations 03/09/18 23:47 Documentation prepared by Norma Borjas, acting as nuclear medicine medical director for Kwan Rodriguez MD. <Norma Borjas - Last Filed: 03/09/18 23:47>
--- NOTE | 2018-03-10 00:05 | PDOC ---
History of Present Illness - General Chief Complaint: Chest Pain Stated Complaint: CHEST PAIN, SOB Time Seen by Provider: 03/09/18 23:21 History Source: Patient Exam Limitations: No Limitations - History of Present Illness Initial Comments: 03/09/18 23:54 Patient is a 27F with history of asthma and migraines here today complaining of chest pain for the past two days. She states the pain radiates to her left arm and is associated with occasional shortness of breath. Denies fevers, chills, nausea, vomiting. Pain is worsened with inspiration movement of arm and palpation of chest. No cardiac history. No family history. No recent travel, no prior PE, no leg swelling, no estrogen use. Past History - Past Medical History Allergies/Adverse Reactions: Allergies Allergy/AdvReac Type Severity Reaction Status Date / Time Penicillins Allergy Unknown Verified 03/09/18 21:48 Home Medications: Ambulatory Orders Eye Lubricant Combination No.1 [Freshkote] 1 ml OP QID #1 drops 03/04/18 Asthma: Yes COPD: No - Immunization History Immunization Up to Date: Yes (UTO) - Suicide/Smoking/Psychosocial Hx Smoking History: Never smoked Have you smoked in the past 12 months: Yes Number of Cigarettes Smoked Daily: 20 'Breaking Loose' booklet given: 07/15/16 Hx Alcohol Use: No Drug/Substance Use Hx: No Substance Use Type: None Review of Systems - Review of Systems Comments:: 03/10/18 00:05 GENERAL/CONSTITUTIONAL: No fever or chills. No weakness. HEAD, EYES, EARS, NOSE AND THROAT: No change in vision. No sore throat. CARDIOVASCULAR: +chest pain no shortness of breath RESPIRATORY: No cough, wheezing, or hemoptysis. GASTROINTESTINAL: No nausea, vomiting, diarrhea or constipation. GENITOURINARY: No dysuria, frequency, or change in urination. MUSCULOSKELETAL: No joint or muscle swelling or pain. No neck or back pain. SKIN: No rash NEUROLOGIC: No headache, vertigo, loss of consciousness, or change in strength/ sensation. ENDOCRINE: No increased thirst. No abnormal weight change HEMATOLOGIC/LYMPHATIC: No anemia, easy bleeding, or history of blood clots. ALLERGIC/IMMUNOLOGIC: No hives or skin allergy. *Physical Exam - Vital Signs Last Vital Signs Temp Pulse Resp BP Pulse Ox 97.4 F L 61 18 97/58 L 99 03/09/18 21:46 03/09/18 21:46 03/09/18 21:46 03/09/18 21:46 03/09/18 21:46 - Physical Exam Comments: 03/10/18 00:06 GENERAL: Awake, alert, and fully oriented, in no acute distress HEAD: No signs of trauma, normocephalic, atraumatic EYES: PERRLA, EOMI, sclera anicteric, conjunctiva clear ENT: Auricles normal inspection, hearing grossly normal, nares patent, oropharynx clear without exudates. Moist mucosa NECK: Normal ROM, supple, no lymphadenopathy, JVD, or masses LUNGS: No distress, speaks full sentences, clear to auscultation bilaterally HEART: Regular rate and rhythm, normal S1 and S2, no murmurs, rubs or gallops, peripheral pulses normal and equal bilaterally. +Pain in left chest. ABDOMEN: Soft, nontender, normoactive bowel sounds. No guarding, no rebound. No masses EXTREMITIES: Normal inspection, Normal range of motion, no edema. No clubbing or cyanosis. NEUROLOGICAL: Cranial nerves II through XII grossly intact. Normal speech, normal gait, no focal sensorimotor deficits SKIN: Warm, Dry, normal turgor, no rashes or lesions noted. Moderate Sedation - Procedure Monitoring Vital Signs: Procedure Monitoring Vital Signs Temperature 97.4 F L 03/09/18 21:46 Pulse Rate 61 03/09/18 21:46 Respiratory Rate 18 03/09/18 21:46 Blood Pressure 97/58 L 03/09/18 21:46 O2 Sat by Pulse Oximetry (%) 99 03/09/18 21:46 ED Treatment Course - RADIOLOGY Radiology Studies Ordered: Category Date Time Status CHEST PA & LAT [RAD] Stat Radiology 03/09/18 23:31 Ordered Medical Decision Making - Medical Decision Making 03/10/18 00:06 Patient is 27F here today with atypical chest pain. Vitals normal and stable. PERC negative. EKG shows sinus bradycardia with rate of 57. No st elevation/ depressions. Normal axis. Normal intervals. No significant t wave abnormalities. Do not suspect ACS. Patient has MSK pain. Will do CXR, give motrin, discharge. 03/10/18 01:18 CXR clear. Given return precautions. Discharged home. *DC/Admit/Observation/Transfer Diagnosis at time of Disposition: Atypical chest pain - Discharge Dispostion Disposition: HOME Condition at time of disposition: Good Decision to Admit order: No - Referrals - Patient Instructions Printed Discharge Instructions: DI for Atypical Chest Pain Additional Instructions: Please follow up with your primary care doctor regarding your pain. Please return if you have any new, worsening or concerning symptoms, especially fever, increasing pain and shortness of breath. - Post Discharge Activity Forms/Work/School Notes: Back to Work
[2018-03-10] MEDS ORDERED: IBUPROFEN 600 MG TABLET (FP) PO ONE ×2 (00:07→00:20)
[2018-03-10 01:24] VITALS: BP 108/65; PULSE 72
--- NOTE | 2018-03-10 09:16 | EKG ---
Test Reason : Blood Pressure : / mmHG Vent. Rate : 057 BPM Atrial Rate : 057 BPM P-R Int : 146 ms QRS Dur : 094 ms QT Int : 438 ms P-R-T Axes : 063 064 049 degrees QTc Int : 426 ms SINUS BRADYCARDIA OTHERWISE NORMAL ECG WHEN COMPARED WITH ECG OF 12-JUL-2016 16:23, NO SIGNIFICANT CHANGE WAS FOUND Confirmed by LIGIA GÓMEZ MD ([id number]) on 03/10/2018 9:15:47 AM Referred By: Confirmed By:LIGIA GÓMEZ MD
== END 2018-03-10 01:27 | disposition home or self-care (01) ==
LOC: JER 21:44
DX: R07.9 Chest pain, unspecified (principal)
CPT/HCPCS: 71046-TC-FY; 84703; 93005; 93010; 99284-25

== ENCOUNTER 2021-08-30 23:03 | Emergency (ER) | payer OTHER ==
[2021-08-30 23:39] VITALS: BP 105/65; PULSE 98; TEMP 98.3; BMI 25.0
[2021-08-30] MEDS ORDERED: ACETAMINOPHEN 500 MG TABLET (FP) PO ONE (23:48)
== END 2021-08-31 01:06 | disposition home or self-care (01) ==
LOC: JER 23:03
DX: M79.675 Pain in left toe(s) (principal); W23.0XXA Caught, crushed, jammed, or pinched between moving objects, initial encounter
CPT/HCPCS: 73630-TC-LT; 99283-25